=== PATIENT | female | born 1990 | race Caucasian/White ===

== ENCOUNTER 2020-01-10 09:44 | Inpatient (IN) ==
[2020-01-10] MEDS ORDERED: OXYTOCIN/DEXTROSE 5%-WATER 30 UNITS/500 ML BAG IV ONE (09:52)
[2020-01-10] MEDS ORDERED: ONDANSETRON 4 MG TAB.RAPDIS PO PRN (09:52)
[2020-01-10] MEDS ORDERED: DEXTROSE 5%-LACTATED RINGERS 1,000 ML IV PRN (09:52)
[2020-01-10] MEDS ORDERED: PENICILLIN G POTASSIUM 5 MILLIONUNT in DEXTROSE 5 % IN WATER 100 ML IV ONE ×2 (09:52)
[2020-01-10 10:46] LABS: Hematocrit 31.1 % (37.0-47.0); Hemoglobin 10.5 gm/dL (12.5-16.0); Mean Cell Volume 86.6 fl (78-100); Mean Corpuscular Hemoglobin 29.2 pg (27-31); Mean Corpuscular Hgb Conc 33.8 g/dl (32-36); Mean Platelet Volume 10.6 fl (8-12.5); Neutrophil # 8.8 K/mm3 (1.3-6.0); Neutrophil % 72.9 % (42-75.0); Platelet Count 199 K/mm3 (150-450); Red Blood Count 3.59 M/mm3 (4.2-5.4); Red Cell Distribution Width 14.4 % (11.5-14.0); White Blood Count 12.1 K/mm3 (4.0-10.5)
[2020-01-10] MEDS: RINGER'S SOLUTION,LACTATED 1,000 ML IV ONE (10:53)
--- NOTE | 2020-01-10 12:30 | HP ---
Chief Complaint - Chief Complaint Date of Service: 01/10/20 Time of Service: 12:24 Chief Complaint: induction of labor History of Present Illness: 29 yo at 40 1/7 weeks presents to L&D for induction/augmentation of labor due to advanced cervical dilation and GBS positive. This complicated by anemia. Rh positive Rubella immune GBS positive. Medical History (Last Reviewed 01/10/20 @ 12:26 by Anthony Cade DO) Environmental allergies Onset Date: ~2006 Varicose veins of lower extremity Onset Date: 09/02/19 Surgical History: Surgical History (Last Reviewed 01/10/20 @ 12:26 by Anthony Cade DO) H/O wisdom tooth extraction Onset Date: ~2007 Family History: Family History (Last Reviewed 01/10/20 @ 12:26 by Anthony Cade DO) Father Hypertension Diabetes COPD (chronic obstructive pulmonary disease) Mother Alive and well Social History: (Last Reviewed 01/10/20 @ 12:26 by Anthony Cade DO) Social History: Marital status: current occupational status: employed current occupation: [employer]: No Tobacco: Smoking Status: Never smoker Alcohol: alcohol intake: former Substance Use: substance use type: does not use Dietary Habits: caffeine: No Review Of Systems (GEN) - Review of Systems Generalized/Overall Review: Present: No Symptoms Reported EENTM: Present: No Symptoms Reported Respiratory: Present: No Symptoms Reported Cardiac: Present: No Symptoms Reported Abdominal: Present: No Symptoms Reported Genitourinary: Present: Other - LOF - urine vs amniotic fluid Musculoskeletal: Present: Back Pain Neurological: Present: No Symptoms Reported Skin: Present: No Symptoms Reported Endocrine: Present: No Symptoms Reported Immunizations: IMMUNIZATION HX Immunizations Up to Date Yes History of Influenza Vaccine No Hx Pneumococcal Vaccination No Allergies/Adverse Reactions: Allergies Allergy/AdvReac Type Severity Reaction Status Date / Time Penicillins Allergy Mild RASH Verified 01/10/20 09:26 Home Medications: HOME MEDICATIONS prenat.vits,jen,[id number] 1 tab PO DAILY 06/24/19 [Last Taken Unknown] ferrous sulfate 325 mg (65 mg iron) tablet 325 mg PO BID #30 tab 10/15/19 [Last Taken Unknown] breast pump See Rx Instructions .ROUTE .MEDSUPPLY #1 ea 10/19/19 [Last Taken Unknown] Exam - Exam Vital Signs: Vital Signs - Last Taken Temp 36.9 C 01/10/20 10:47 Pulse 97 01/10/20 10:47 Resp 18 01/10/20 10:47 BP 108/55 01/10/20 10:47 Pulse Ox 96 01/10/20 10:47 Constitutional: Present: Alert, Oriented x3, Cooperative, No distress ENT Exam: Present: hearing grossly normal Neck: Present: non-tender. Absent: thyromegaly Breasts: Present: Exam deferred Respiratory: Present: lungs clear, no respiratory distress Cardiovascular/Chest: Present: regular rate, rhythm, no edema Abdomen: Present: soft, nontender, no rebound tenderness, other - Gravid /Rectal: Present: Other - 5/80/-2, no vaginal pooling, amnioswab negative, BBOW Extremity: Present: no calf tenderness, lower extremity edema Skin Exam: Present: normal color, warm/dry, no cyanosis Neurologic: Present: alert, normal mood/affect, oriented x 3 Appearance: Present: appropriate appearance, appropriate insight Eye contact: Present: cooperative, good eye contact Thoughts: Present: normal thought pattern, normal mood /affect Diagnostic Studies: Abnormal Lab Results 01/10/20 Range/Units 10:42 WBC 12.1 H (4.0-10.5) K/mm3 RBC 3.59 L (4.2-5.4) M/mm3 Hgb 10.5 L (12.5-16.0) gm/dL Hct 31.1 L (37.0-47.0) % RDW 14.4 H (11.5-14.0) % Immature Gran % (Auto) 1.20 H (0.001-0.429) % Immature Gran # (Auto) 0.15 H (0.000-0.0310) K/mm3 Lymphocytes % 15.9 L (20-51) % Monocytes % 9.1 H (0.0-9) % Neutrophils # 8.8 H (1.3-6.0) K/mm3 Monocytes # 1.1 H (0.0-1.0) k/mm3 Laboratory Results WBC 12.1 K/mm3 (4.0-10.5) H 01/10/20 10:42 RBC 3.59 M/mm3 (4.2-5.4) L 01/10/20 10:42 Hgb 10.5 gm/dL (12.5-16.0) L 01/10/20 10:42 Hct 31.1 % (37.0-47.0) L 01/10/20 10:42 MCV 86.6 fl (78-100) 01/10/20 10:42 MCH 29.2 pg (27-31) 01/10/20 10:42 MCHC 33.8 g/dl (32-36) 01/10/20 10:42 RDW 14.4 % (11.5-14.0) H 01/10/20 10:42 Plt Count 199 K/mm3 (150-450) 01/10/20 10:42 MPV 10.6 fl (8-12.5) 01/10/20 10:42 Immature Gran % (Auto) 1.20 % (0.001-0.429) H 01/10/20 10:42 Immature Gran # (Auto) 0.15 K/mm3 (0.000-0.0310) H 01/10/20 10:42 Neutrophils % 72.9 % (42-75.0) 01/10/20 10:42 Lymphocytes % 15.9 % (20-51) L 01/10/20 10:42 Monocytes % 9.1 % (0.0-9) H 01/10/20 10:42 Eosinophils % 0.7 % (0.0-3.0) 01/10/20 10:42 Basophils % 0.2 % (0.0-1.0) 01/10/20 10:42 Nucleated RBC % 0.0 k/mm3 (0-1) 01/10/20 10:42 Neutrophils # 8.8 K/mm3 (1.3-6.0) H 01/10/20 10:42 Lymphocytes # 1.92 k/mm3 (1.5-3.5) 01/10/20 10:42 Monocytes # 1.1 k/mm3 (0.0-1.0) H 01/10/20 10:42 Eosinophils # 0.1 k/mm3 (0.0-0.7) 01/10/20 10:42 Absolute Basophils 0.0 k/mm3 (0.0-0.1) 01/10/20 10:42 Assessment/Plan - Assessment/Plan (1) Encounter for induction of labor Assessment: Admit for pitocin induction/augmentation of labor. IV PCN per GBS protocol. Epidural PRN. Problem: Acute (2) Group B streptococcal carriage complicating Problem: Acute (3) Anemia Problem: Acute Qualifiers: Anemia type: iron deficiency Iron deficiency anemia type: inadequate dietary iron intake Qualified Code(s): D50.8 - Other iron deficiency anemias
[2020-01-10] MEDS: PENICILLIN G POTASSIUM 2.5 MILLIONUNT in DEXTROSE 5 % IN WATER 100 ML IV SCH ×6 (15:10→22:42)
--- NOTE | 2020-01-10 17:48 | PN ---
Progess Note - Interim Date: 01/10/20 Time: 17:45 Narrative: 01/10/20 17:45 Patient rating contractions as mild to moderate. Vital signs stable. Pitocin at 6 mu/min. FHT: 150 baseline, reassuring contractions q 2-4 minutes with occasional couplets Cervix: 7/80/-2, AROM-clear Impression: Intrauterine at 40 1/7 weeks in labor. GBS carrier-status post 2 doses of penicillin. Plan: We will try Army crawl position to turn baby from OP to OA.
[2020-01-10] MEDS ORDERED: LIDOCAINE HCL 50 ML VIAL IJ PRN (19:24)
[2020-01-10] MEDS ORDERED: ONDANSETRON HCL/PF 2 MG/ML VIAL IV PRN (19:40)
[2020-01-10] MEDS ORDERED: BUPIVACAINE HCL/0.9 % NACL/PF 250 ML EP PRN (19:40)
[2020-01-10] MEDS ORDERED: NALOXONE HCL 1 MG/1 ML SYRG IV PRN (19:40)
[2020-01-10] MEDS ORDERED: fentaNYL CITRATE/PF 50 MCG/ML AMPUL IT SCH (19:45)
--- NOTE | 2020-01-10 20:12 | ANES ---
Anesthesia Pre Procedure Eval Vitals/Labs: Last Vital Signs Temp 36.9 C 01/10/20 10:47 Pulse 97 01/10/20 10:47 Resp 18 01/10/20 10:47 BP 108/55 01/10/20 10:47 Pulse Ox 96 01/10/20 10:47 HOME MEDICATIONS prenat.vits,jen,[id number] 1 tab PO DAILY 06/24/19 [Last Taken Unknown] ferrous sulfate 325 mg (65 mg iron) tablet 325 mg PO BID #30 tab 10/15/19 [Last Taken Unknown] breast pump See Rx Instructions .ROUTE .MEDSUPPLY #1 ea 10/19/19 [Last Taken Unknown] Allergies/Adverse Reactions: Allergies Allergy/AdvReac Type Severity Reaction Status Date / Time Penicillins Allergy Mild RASH Verified 01/10/20 09:26 - Planned Procedure Planned Procedure: ACTIVE LABOR Medication List Reviewed:: Yes Allergies Verified: Yes Medical History (Last Reviewed 01/10/20 @ 20:11 by Rolo Foss CRNA) Environmental allergies Onset Date: ~2006 Varicose veins of lower extremity Onset Date: 09/02/19 Surgical History (Last Reviewed 01/10/20 @ 20:11 by Rolo Foss CRNA) H/O wisdom tooth extraction Onset Date: ~2007 Family History (Last Reviewed 01/10/20 @ 20:11 by Rolo Foss CRNA) Father Hypertension Diabetes COPD (chronic obstructive pulmonary disease) Mother Alive and well - Family Anesthesia History Family History:: no untoward family reactions to anesthesia, no familial bleeding tendencies, no family history of clotting disorders, no family history of premature - Airway/Neck/Teeth Within Normal Limits:: Yes Teeth Condition: intact Neck Exam: full range of motion Mallampatti Score: 2 Thyromental (T-M) distance: > 6 cm Mandibulo Hyoid distance: > 3 cm - Respiratory Respiratory History: other - environmental allergies Respiratory Physical: lungs clear Smoking Status: Never smoker Sleep Apnea currently treated: No Sleep Apnea by current assessment: No - Cardiovascular Tolerate Activity: Fair Heart Sounds: S1 & S2, Regular - Gastrointestinal NPO since: most of day - Anesthesia Assessment and Plan ASA Class: PS, II, E Anesthesia Type Plan: Epidural - CSE for labor analgesia
--- NOTE | 2020-01-10 20:30 | ANES ---
Post Anesthesia Discharge - Transfer of Care Transfer of Care handoff given to nurse: Yes - Discharge from PACU Discharge from PACU when meets criteria: Yes - Comfortable post CSE
--- NOTE | 2020-01-10 20:32 | ANES ---
Anesthesia Procedure Note Procedure Note: ANESTHESIA PROCEDURE NOTE Date of Procedure: 01/10/2020 Time of procedure: 2009. Performed by: SHARRI Montero CRNA, MSN [employer] Manager: Jemma Monsalve RN. Preprocedure diagnosis: Active labor, labor pain. Post procedure diagnosis: Same. Procedure:Epidural for labor analgesia L3-4. Indications: Labor pain. Findings: See below. Details of the procedure: The patient was placed on the side of the bed in sitting positionand prepped with DuraPrep then draped in a sterile fashion. Lidocaine 1% was infiltrated to the skin and subcutaneous tissues at the level of the L3-4 interspace. An 18-gauge Touhy needle was used to approach the epidural space with loss of resistance technique. Once loss of resistance was achieved a 27-gauge spinal needle was passed through the epidural needle and CSF was contacted. After CSF returned, 20 mcg of fentanyl was injected in the spinal needle was removed the epidural catheter was then threaded approximately 4 cm in the epidural needle was removed. The catheter was taped in place and after careful aspiration 3 mL of 1.5% lidocaine with 1-200,000 epinephrine was injected without change in maternal heart rate or sensorium. . EBL: Minimal. Fluids: N/A. Specimen: N/A. Post procedure condition: The patient tolerated the procedure well with good relief. No complications were noted. Thank you for this consultation. Rolo Foss CRNA, ARNP, MSN
--- NOTE | 2020-01-10 20:38 | ANES ---
Post Anesthesia Assessment - Vital Signs Vitals: Last Vital Signs Temp 36.9 C 01/10/20 10:47 Pulse 97 01/10/20 10:47 Resp 18 01/10/20 10:47 BP 108/55 01/10/20 10:47 Pulse Ox 96 01/10/20 10:47 Airway Patency: Normal - Mental Status Level Of Consciousness: Awake, Alert, Appropriate - Pain Level Pain Score: 0 - N/V Assessment Nausea/Vomiting Presence: None Dehydration:: No
[2020-01-11] MEDS: PENICILLIN G POTASSIUM 2.5 MILLIONUNT in DEXTROSE 5 % IN WATER 100 ML IV SCH ×2 (02:40)
[2020-01-11] MEDS: RINGER'S SOLUTION,LACTATED 1,000 ML IV ONE (04:16)
[2020-01-11] MEDS ORDERED: HYDROCORTISONE 30 APPL TUBE TP PRN (04:43)
[2020-01-11] MEDS ORDERED: IBUPROFEN 800 MG TABLET PO PRN (04:43)
[2020-01-11] MEDS ORDERED: SENNOSIDES 8.6 MG TABLET PO PRN (04:43)
[2020-01-11] MEDS ORDERED: BISACODYL 10 MG SUPP.RECT RC PRN (04:43)
[2020-01-11] MEDS ORDERED: BENZOCAINE/MENTHOL 81 SPRAY CAN TP PRN (04:43)
[2020-01-11] MEDS ORDERED: oxyCODONE HCL/ACETAMINOPHEN 1 TAB TABLET PO PRN (04:43)
[2020-01-11] MEDS ORDERED: OXYTOCIN/DEXTROSE 5%-WATER 30 UNITS/500 ML BAG IV ONE (04:43)
--- NOTE | 2020-01-11 04:51 | OR ---
Operative Report - Dictated Report Narrative: Delivery of viable female at 0 415 on 01/11/2020 with Apgars 8 and 8, weighing 4678 g in GAB position. Cord clamping was delayed approximately 30 seconds. Placenta delivered complete, intact, with three-vessel cord. 2nd stage of labor: 1 hour 35 minutes head/body interval: 131 seconds Anesthesia: Epidural estimated weight: 4000 g diabetes: No Attendants at : [OB: Anthony Cade, Ped: Not present, Nurses: Jemma Monsalve and Isabell Quan, Others: None Position of head at delivery: GAB right shoulder anterior with delivery of left shoulder anterior after wood screw maneuver Maneuvers used: Yong yes, Suprapubic pressure yes, Wood's screw yes Description: Counterclockwise rotation of the baby shoulders resulted in easily clearing the pubic bone Infant moving all extremities at yes, Injuries noted: None Cord gases not obtained Mother's condition: Bilateral first-degree labial lacerations repaired with 3-0 Vicryl Rapide EBL: 100ml Mother informed of dystocia and potential sequelae. Recommendations for future pregnancies: Avoid vaginal delivery of as large as this one. History for MU History for Definition: * The number of deliveries resulting in a live the patient experienced prior to current hospitalization * The previous delivery of live twins or any live multiple gestation is considered one live event. *If primagravida or nulliparous is documented select zero for the number of previous live births. Live Events: Live Events: 0
[2020-01-11] MEDS: GLYCERIN/WITCH HAZEL LEAF 40 APPL BOX TP PRN (07:22)
[2020-01-11] MEDS: DOCUSATE SODIUM 100 MG CAPSULE PO SCH ×2 (10:47→21:58)
[2020-01-11] MEDS: IBUPROFEN 800 MG TABLET PO PRN ×2 (11:46→18:58)
[2020-01-12] MEDS: IBUPROFEN 800 MG TABLET PO PRN ×3 (01:41→15:56)
[2020-01-12] MEDS: DOCUSATE SODIUM 100 MG CAPSULE PO SCH ×3 (07:41→21:26)
--- NOTE | 2020-01-12 08:11 | PN ---
Subjective - Date and Time Seen Date: 01/12/20 Time: 08:10 Objective - Vitals Vitals: Last Vital Signs Temp 36.6 C 01/12/20 01:47 Pulse 74 01/12/20 01:47 Resp 18 01/12/20 01:47 BP 122/69 01/12/20 01:47 Pulse Ox 98 01/12/20 01:47 Patient denies complaints. Breast-feeding well Lochia wnl abdomen - soft, nontender Uterus -firm, at umbilicus - 1 no calf tenderness Impression: day #1 - s/p spontaneous vaginal delivery. Plan: Continue routine care Cauti Physician Documentation - Urinary Catheter Management Urethral ([place]) Date of Insertion: 01/10/20 Time of Insertion: 20:35 Date of Removal: 01/11/20 Time of Removal: 02:56 Assessment/Plan - Problems/Diagnosis (1) Encounter for induction of labor Problem: Acute (2) Group B streptococcal carriage complicating Problem: Acute (3) Anemia Problem: Acute Qualifiers: Anemia type: iron deficiency Iron deficiency anemia type: inadequate dietary iron intake Qualified Code(s): D50.8 - Other iron deficiency anemias
[2020-01-12] MEDS: PRENATAL VITS96/IRON FUM/FOLIC 1 TAB TABLET PO SCH (08:39)
[2020-01-12] MEDS: FERROUS SULFATE 325 MG TABLET PO SCH ×2 (08:39→21:26)
[2020-01-13] MEDS: GLYCERIN/WITCH HAZEL LEAF 40 APPL BOX TP PRN (03:34)
[2020-01-13] MEDS: IBUPROFEN 800 MG TABLET PO PRN (07:09)
[2020-01-13 08:18] VITALS: BP 120/65
[2020-01-13] MEDS: DOCUSATE SODIUM 100 MG CAPSULE PO SCH (08:37)
[2020-01-13] MEDS: FERROUS SULFATE 325 MG TABLET PO SCH (08:37)
[2020-01-13] MEDS: PRENATAL VITS96/IRON FUM/FOLIC 1 TAB TABLET PO SCH (08:37)
--- NOTE | 2020-01-13 09:17 | PN ---
Subjective - Date and Time Seen Date: 01/13/20 Time: 09:16 Objective - Vitals Vitals: Last Vital Signs Temp 37.2 C 01/13/20 07:00 Pulse 62 01/13/20 07:00 Resp 18 01/13/20 07:00 BP 120/65 01/13/20 07:00 Pulse Ox 97 01/13/20 07:00 Patient denies complaints. Working on breast-feeding. Lochia wnl abdomen - soft, nontender Uterus -firm, at umbilicus - 2 no calf tenderness Impression: day #2 - s/p spontaneous vaginal delivery. Plan: Routine discharge instructions. Met with the exchange underwriting consultant and has future appointments made. Cauti Physician Documentation - Urinary Catheter Management Urethral ([place]) Date of Insertion: 01/10/20 Time of Insertion: 20:35 Date of Removal: 01/11/20 Time of Removal: 02:56 Assessment/Plan - Problems/Diagnosis (1) Encounter for induction of labor Problem: Acute (2) Group B streptococcal carriage complicating Problem: Acute (3) Anemia Problem: Acute Qualifiers: Anemia type: iron deficiency Iron deficiency anemia type: inadequate dietary iron intake Qualified Code(s): D50.8 - Other iron deficiency anemias
== END 2020-01-13 14:00 | disposition home or self-care (01) | DRG 807 ==
LOC: OB 09:44
PROVIDERS: ADMIT Obstetrics & Gynecology; ATTEND Obstetrics & Gynecology
CPT/HCPCS: 36415; 59025; 85025; J2405